=== PATIENT | male | born 1970 | race Caucasian/White ===

== ENCOUNTER 2021-11-17 12:38 | Emergency (ER) | payer OTHER ==
[~2021-11-17] VITALS: Ht 172.7 cm; Wt 95.3 kg
[2021-11-17] MEDS ORDERED: TDAP DIPH,PERTUSS,TET VAC/PF 0.5 ML DISP.SYRIN IM ONE ×2 (13:00→13:16)
[2021-11-17] MEDS ORDERED: LIDOCAINE HCL 1% 20 ML VIAL IJ ONE (13:00)
[2021-11-17] MEDS ORDERED: NEOMY/BACITRA/POLYMYXIN B OINT UD PACKET TP ONE ×2 (13:00→13:15)
[2021-11-17] MEDS ORDERED: CEPH500C2 PO (13:10)
[2021-11-17] MEDS ORDERED: IBUP-1955 PO (13:10)
--- NOTE | 2021-11-17 14:11 | NUR ---
Patient discharged to home in stable condition. Written and verbal after care instructions given. Patient verbalizes understanding of instructions. Stressed follow up or return to ER for worsening s/s.
== END 2021-11-17 14:11 | disposition home or self-care (01) ==
LOC: ER 12:38
DX: S62.637A Displaced fracture of distal phalanx of left little finger, initial encounter for closed fracture (principal); S61.211A Laceration without foreign body of left index finger without damage to nail, initial encounter; Z79.1 Long term (current) use of non-steroidal anti-inflammatories (NSAID); Z79.899 Other long term (current) drug therapy; W26.8XXA Contact with other sharp object(s), not elsewhere classified, initial encounter; Y93.89 Activity, other specified; Y92.89 Other specified places as the place of occurrence of the external cause; Y99.8 Other external cause status
CPT/HCPCS: 12001; 73080; 73130; 90471; 90715; 99284; J3490; A4663